=== PATIENT | female | born 2005 | race Caucasian/White ===

== ENCOUNTER 2024-02-03 23:00 | Emergency (ER) | payer OTHER ==
[~2024-02-03] VITALS: Ht 165.1 cm; Wt 70.3 kg
[2024-02-04 01:06] LABS: PREGNANCY TEST URINE QUAL NEGATIVE (NEGATIVE)
[2024-02-04 01:42] VITALS: BP 122/78; TEMP 98; O2SAT 97
== END 2024-02-04 01:43 | disposition left against medical advice (07) ==
LOC: ER 23:06
DX: T18.9XXA Foreign body of alimentary tract, part unspecified, initial encounter (principal); W44.9XXA Unspecified foreign body entering into or through a natural orifice, initial encounter
CPT/HCPCS: 74018; 84703-TC

== ENCOUNTER 2024-02-06 17:48 | Emergency (ER) | payer OTHER ==
[~2024-02-06] VITALS: Ht 165.1 cm; Wt 69.9 kg
[2024-02-06 18:31] VITALS: BP 129/83; TEMP 98.6; O2SAT 97
== END 2024-02-06 18:30 | disposition home or self-care (01) ==
LOC: ER 17:52
DX: T18.9XXA Foreign body of alimentary tract, part unspecified, initial encounter (principal); Z86.59 Personal history of other mental and behavioral disorders; Z91.09 Other allergy status, other than to drugs and biological substances; W44.A9XA Other batteries entering into or through a natural orifice, initial encounter; Y93.89 Activity, other specified; Y92.89 Other specified places as the place of occurrence of the external cause; Y99.8 Other external cause status